=== PATIENT | male | born 1960 | race Caucasian/White ===

== ENCOUNTER 2025-05-31 00:07 | Emergency (ER) | payer BC, SELFPAY ==
--- OUTSIDE RECORDS SUMMARY | 2023-07-26 05:51 | XMS_ITS | Continuity of Care Document ---
Author Organization [facility] Address [address] [place] [id number] Care Team Providers Care Market Reporter Name Role Phone Jak Rubin Unavailable Unavailable Medications Medication Instructions Dosage Effective Dates (start - stop) Status Comments clonidine HCl 0.1 mg tablet take 1 tablet by oral route every day 0.1 MG - No Longer Active acetaminophen 325 mg tablet take 2 tablet by oral route 2 times every day as needed 650 MG - No Longer Active ibuprofen 200 mg capsule take 3 capsule by oral route 2 times every day for 3 days - No Longer Active hydroxyzine pamoate 50 mg capsule take 1 capsule by oral route 2 times every day as needed 50 MG - No Longer Active clonidine HCl 0.1 mg tablet take 1 tablet by oral route 2 times every day 0.1 MG - No Longer Active venlafaxine ER 75 mg tablet,extended release 24 hr take 3 tablet by oral route every day in the morning at the same time each day with food 225 MG - No Longer Active buspirone 15 mg tablet take 1 tablet by oral route 2 times every day 15 MG - No Longer Active Suboxone 8 mg-[address] 1 film by sublingual route every day allow to dissolve slowly in mouth without chewing or swallowing 1 film - No Longer Active Advance Directives Directive Yes / No Effective Date File Name No Information Encounters Encounter Description Practice Location Reason(s) For Visit Diagnoses Date Provider Providers Copied on Encounter [facility] , [address] [place] [address], [phone], [facility] No Information 3 Scottie Benedict. . [facility] , [address] [place] [address], [phone], [facility] No Information 3 Scottie Benedict. . Family History Family Member Type Diagnosis Age At Onset No Information Payers Payer name Insurance type Covered republican ID Authoriza tion(s) No Information Social History Type Description Quantity Date Captured Comments Alcohol Use Details Unknown Caffeine Use Details Unknown Tobacco Use Status No Information Smoking Status No Information Sex Male Vital Signs Date / Time: Height Weight BMI Pulse Rate Blood Pressure Temperature Respiratory Rate Body Surface Area Head Circumference Head Circ. Percentile Wt./Vinayak. Percentile BMI percentile Pulse Ox Inhaled Ox 10:57 AM 105 /min 143/86 mm[Hg] 98.90 F 96 % Chief Complaint And Reason For Visit No Information Reason For Referral Reason For Referral No Information History Of Present Illness Encounter Date Complaint History Of Prese nt Illness No Information Functional Status Date Functional Assessmen t No Information Instructions Date Instruction Additional Infor mation No Information Assessments Type Assessment Date No Information Patient Care Teams Name Effective Dates (start - stop) Status Members No Information
--- OUTSIDE RECORDS SUMMARY | 2023-07-26 05:51 | XMS_ITS | Continuity of Care Document ---
Author Organization [facility] Address [address] [place] [id number] Care Team Providers Care Corporate Treasury Analyst Name Role Phone Jak Rubin Unavailable Unavailable [...] Diagnoses Date Provider Providers Copied on Encounter [facility] , [address] [place] [address], [phone], [facility] No Information 3 Scottie Benedict. . [facility] , [address] [place] [address], [phone], [facility] No Information 3 Scottie Benedict. . Family History Family Member Type Diagnosis Age At Onset No Information Payers Payer name Insurance type Covered democrat ID Authoriza tion(s) No Information Social History [...]
--- OUTSIDE RECORDS SUMMARY | 2025-05-31 00:10 | XMS_ITS | Clinical Summary ---
Author Organization [facility] Address [address] [place] [address] Care Team Providers Care Mva Reactor Operator Name Role Phone Unavailable Primary Care Provider Unavailabl e Social History Tobacco Use Types Packs/Day Years Used Date Smoking Tobacco: Never Assessed Sex and Gender Information Value Date Recorded Sex Assigned at Not on file Legal Sex Male 7:45 AM CDT Gender Identity Not on file Sexual Orientation Not on file Last Filed Vital Signs Vital Sign Reading Time Taken Comments Blood Pressure 138/80 06/12/2017 10:24 AM CDT Pulse 72 06/12/2017 10:22 AM CDT Temperature - - Respiratory Rate - - Oxygen Saturation - - Inhaled Oxygen Concentration - - Weight 93.6 kg (206 lb 6.4 oz) 06/12/2017 10:22 AM CDT Height 168.9 cm (5' 6.5) 06/12/2017 10:22 AM CD T Body Mass Index 32.81 06/12/2017 10:22 AM CDT Plan of Treatment Not on file
[2025-05-31 00:14] VITALS: BP 121/80; PULSE 77; RESP 20; TEMP 36.4; O2SAT 94; BMI 31.3
--- NOTE | 2025-05-31 00:43 | ED.FEVER ---
HPI - Fever General Time Seen by Provider: 00:43 Date Seen: 05/31/25 Chief Complaint: Fever Stated Complaint: fever Time Seen by Provider: 05/31/25 00:43 Source: patient Mode of arrival: ambulatory History of Present Illness HPI Narrative: Mike is a 65-year-old male who presents the emergency department for evaluation of a fever. Patient complains of fever, rhinorrhea, chest congestion for the past 2 days. Patient reports fever at home tonight of 101.5. Patient has been taking Tylenol for symptoms. Patient also noted oxygen saturations to be lower tonight around 91-89% on room air. Patient denies any shortness of breath, reports some congestion in his chest but denies any chest pain. Denies any abdominal pain, nausea, vomiting, diarrhea. Patient reports sick contacts approximately 2 weeks ago with pneumonia. Patient was seen in urgent care earlier today and was recommended to take [id number] medications including Mucinex, Sudafed however no testing was done at that time. Related Data Home Medications ?Medication ?Instructions ?Recorded ?Confirmed No Known Home Medications 02/13/25 05/30/25 Allergies Allergy/AdvReac Type Severity Reaction Status Date / Time No Known Drug Allergies Allergy Verified 05/30/25 11:53 Review of Systems Narrative Past medical history, past surgical history, medications, allergies, family history, and social history were reviewed with the patient. No additional pertinent items. A medically appropriate review of systems was performed with pertinent positives and negatives noted in HPI, all other systems negative. PFSH PFS Surgical History (Updated 02/13/25 @ 07:47 by Jose Leonard MD) History of hand surgery ?Z98.890 - Other specified postprocedural states (ICD-10) Family History (Updated 02/10/25 @ 15:07 by Sarah Langston~[employer]OPE PRESS OPERATOR) Father Heart disease Sister Cancer Social History (Updated 02/13/25 @ 08:13 by Kristie Rojas~[facility], CLINICAL TECHNICIAN) What is your current living situation?: declined to answer Problems where you live: declined to answer In the past 12 months, utilities in danger of being shut off: declined to answer In past 12 months, lack of transportation kept you from medical appts, meetings, work, or getting things needed for daily living: declined to answer In the past 12 mos, have been you worried that your food would run out before you had money to buy more?: declined to answer In the past 12 mos, the food you bought just didn't last and you didn't have money to buy more?: declined to answer Non-prescribed substance use: denies use How often does anyone, including family, friends and others, physically hurt you: decline to answer How often does anyone, including family, friends and others, insult or talk down to you: decline to answer How often does anyone, including family, friends and others, threaten you with harm: decline to answer How often does anyone, including family, friends and others, scream or curse at you: decline to answer Health Related Social Needs: unsheltered homelessness (Z59.02) Exam Narrative Exam Narrative: General: Afebrile, no acute distress HEENT: Normocephalic, atraumatic, conjunctiva normal. MMM Neck: non-tender, supple Cardio: regular rate. regular rhythm Resp: Normal work of breathing, no respiratory distress, lungs with coarse breath sounds throughout Chest/Back: no visual signs of trauma, no midline tenderness, no CVA tenderness Abdomen: soft, non distension, no tenderness, no peritoneal signs Neuro: alert and fully oriented. CN II-XII grossly intact. Grossly normal strength and sensation in all extremities. MSK: no deformities. Normal range of motion Integumentary/Skin: no rash visualized, normal color Psych: normal affect, normal behavior Const Vital Signs, click to edit/add: Vital Signs - 24 hr 05/31/25 00:14 05/31/25 01:59 05/31/25 01:59 Temperature 97.6 F Pulse Rate [Pulse Oximeter] 77 80 Respiratory Rate 20 16 18 Blood Pressure [Right Upper Arm] 121/80 126/82 Pulse Oximetry 94 95 95 Oxygen Delivery Method Room Air Room Air Room Air Course Vital Signs Vital signs: Initial Vital Signs Temperature 97.6 F 05/31/25 00:14 Temperature Source Temporal Artery Scan 05/31/25 00:14 Pulse Rate 77 05/31/25 00:14 Respiratory Rate 20 05/31/25 00:14 Blood Pressure 121/80 05/31/25 00:14 Blood Pressure Mean 93 05/31/25 00:14 Blood Pressure Position Sitting 05/31/25 00:14 Pulse Oximetry 94 05/31/25 00:14 Oxygen Delivery Method Room Air 05/31/25 00:14 Vital Signs Temperature 97.6 F 05/31/25 00:14 Pulse Rate 77 05/31/25 00:14 Respiratory Rate 20 05/31/25 00:14 Blood Pressure 121/80 05/31/25 00:14 Pulse Oximetry 94 05/31/25 00:14 Oxygen Delivery Method Room Air 05/31/25 00:14 Temperature 97.6 F 05/31/25 00:14 Pulse Rate 80 05/31/25 01:59 Respiratory Rate 18 05/31/25 01:59 Blood Pressure 126/82 05/31/25 01:59 Pulse Oximetry 95 05/31/25 01:59 Oxygen Delivery Method Room Air 05/31/25 01:59 MDM - Fever MDM Narrative Medical decision making narrative: Mike is a 65-year-old male who presents the emergency department for evaluation of a fever. Upon arrival patient is nontoxic appearing, afebrile, no distress. Patient hemodynamically stable vital signs within normal limits, heart rate 77, blood pressure 121/80, oxygen 94-95% on room air. Patient denies any shortness of breath. Differential diagnosis includes but is not limited to viral illness versus bronchitis versus pneumonia versus pleural effusion versus pneumothorax among others. Patient declined anything for symptoms in the emergency department. Viral testing negative for influenza/COVID/RSV. I personally reviewed interpreted chest x-ray which demonstrates no cardiomegaly, mild pulmonary vascular congestion, patchy bibasilar airspace opacity aguirre which could reflect atelectasis or developing infectious process. Given patient's fever, rhinorrhea, suspect likely early pneumonia. I discussed results with patient. Overall nontoxic appearing and patient feels comfortable discharge home. Will start patient on antibiotics with a 5 day course of azithromycin, encourage close outpatient follow-up, continue supportive care and return precautions discussed. Patient understands and agrees with the plan. Medical Records Attestation: I reviewed the patient's medical records. Lab Data Labs: Lab Results 05/31/25 Range/Units 00:26 SARS-CoV-2 (PCR) Negative SARS-CoV-2 (Negative) Influenza Type A (PCR) Negative PCR FLU A (Negative) Influenza Type B (PCR) Negative PCR FLU B (Negative) RSV (PCR) Negative PCR RSV (Negative) Imaging Data Chest x-ray: Radiologist's impression: Findings/Impression: The heart is not abnormally enlarged. Mild pulmonary vascular congestion. Patchy bibasilar airspace opacification may reflect atelectasis or developing infectious process. No pleural effusion or pneumothorax. No acute osseous abnormality. Discharge Plan Discharge Clinical Impression: Fever, Pneumonia Patient Disposition: Home, Self-Care Condition: Stable Instructions: Community Acquired Pneumonia (ED) Additional Instructions: Please follow-up with your primary care provider in the next 3-5 days for further evaluation and follow-up. Please call to schedule appointment. Please rest, drink plenty of fluids. Please alternate taking Tylenol 1000 mg and ibuprofen 600 mg every 6 hours as needed for pain. Please take antibiotics as directed. Please continue taking durf-qun-vzghhhe cough/cold medication as directed (ex: Mucinex, Sudafed). Please return to the emergency department if you develop high fever, difficulty breathing, chest pain, or any worsening symptoms. It was a pleasure taking care of you today. We hope you feel better soon. Prescriptions: No Action No Known Home Medications Follow Up/Referrals: Jose Leonard MD [Primary Care Provider, Family Practice] Stand Alone Forms: [employer] Info Instructions
--- NOTE | 2025-05-31 00:44 | CRLHL7_ITS ---
For Patients: As a result of the Cures Act, medical imaging exams and procedure reports are released immediately into your electronic medical record. You may view this report before your referring provider. If you have questions, please contact your health care provider. Indication: Fever. Technique: Two views of the chest. Comparison: Chest x-ray 09/01/2021. Findings/Impression: The heart is not abnormally enlarged. Mild pulmonary vascular congestion. Patchy bibasilar airspace opacification may reflect atelectasis or developing infectious process. No pleural effusion or pneumothorax. No acute osseous abnormality. Dictated by Angel Moreno MD @ 05/31/2025 1:03:16 AM (Electronically Signed)
[2025-05-31 01:15] LABS: PCR FLU A Negative PCR FLU A (Negative); PCR FLU B Negative PCR FLU B (Negative); PCR RSV Negative PCR RSV (Negative); SARS PCR* Negative SARS-CoV-2 (Negative)
[2025-05-31 01:59] VITALS: BP 126/82; PULSE 80; RESP 16; RESP 18; O2SAT 95
== END 2025-05-31 03:03 | disposition home or self-care (01) ==
LOC: ED 02:31
PROVIDERS: Emergency Provider Emergency Medicine; PCP Family Medicine
DX: R50.9 Fever, unspecified (principal); J18.9 Pneumonia, unspecified organism
CPT/HCPCS: 71046; 87631; 99283; 99285